=== PATIENT | female | born 1965 | race Caucasian/White ===

== ENCOUNTER → 2020-05-15 | Outpatient (CLI) | payer OTHER ==
--- NOTE | 2020-05-15 15:30 | XR ---
Limited right hand HISTORY: Trauma, possible foreign body 2 views of the right hand Mild arthropathy changes present. Bone mineralization, joint spaces and alignment are maintained. No fracture or dislocation. Soft tissues are unremarkable. IMPRESSION: No radiopaque foreign body.
== END | disposition home or self-care (01) ==
LOC: RADXRYALE 13:03
PROVIDERS: ATTEND Internal Medicine
DX: M79.5 Residual foreign body in soft tissue (principal)